=== PATIENT | female | born 1985 | race Caucasian/White ===

== ENCOUNTER 2017-07-03 17:42 | Observation (INO) | payer MEDICARE, SELFPAY ==
[2017-07-03 18:11] LABS: Bilirubin Negative (Negative); Blood, Urine Trace (Negative); Glucose, Urine (Dipstick) Negative (Negative); Ketone, Urine Negative (Negative); Nitrite Negative (Negative); Protein, Urine (Dipstick) 30 mg/dL (Neg-Trace); Urobilinogen 0.2 mg/dL (0.2-1.0)
[2017-07-03 18:17] LABS: Bacteria/HPF 4+ HPF (None Seen); Hyaline Casts/LPF 0-3 HYALINE CAST LPF (0-3 Hyaline); Squamous Epithelial None Seen HPF (0-3)
[2017-07-03 18:20] LABS: Amphetamine Detected (NotDetected); Methadone Not Detected (NotDetected); Methamphetamine Not Detected (NotDetected)
--- NOTE | 2017-07-03 18:24 | CT ---
CT OF BRAIN PERFORMED WITHOUT CONTRAST ENHANCEMENT: 07/03/17 HISTORY: Seizure-like activity. The ventricular and cisternal system is within normal limits. There are no signs of intracerebral he morrhage or extra-axial fluid collections. Mastoid air cells and visualized sinuses are clear. IMPRESSION: No acute intracranial abnormalities. POS: [facility]
[2017-07-03 18:28] LABS: #Lymphocytes 1.5 thou/uL (1.20-3.40); #Monocytes 0.9 thou/uL (0.11-0.59); #Neutrophils 12.9 thou/uL (1.40-6.50); %Basophils 0.2 % (0.0-1.0); %Eosinophils 0.1 % (0.0-10.0); %Lymphocytes 9.6 % (21.0-51.0); %Monocytes 6.1 % (0.0-10.0); Hematocrit 43.5 % (36.0-47.0); Mean Platelet Volume 7.9 fL (7.4-10.4); Red Blood Cell (RBC) Count 4.64 mill/uL (4.20-5.40); White Blood Cell (WBC) Count 15.3 thou/uL (4.8-10.8)
--- NOTE | 2017-07-03 18:47 | RAD ---
PORTABLE CHEST: 07/03/17 HISTORY: Altered mental status. Seizure activity. Heart size and mediastinum are within normal limits. The lungs are clear of infiltrates. No signs of any evidence for aspiration. IMPRESSION: No active intrathoracic disease. POS: [facility]
[2017-07-03 18:53] LABS: ALT (SGPT) 13 U/L (8-55); AST (SGOT) 28 U/L (5-34); Acetaminophen Less than 6.0 mcg/mL (10.0-30.0); Alkaline Phosphatase 70 U/L (40-150); Anion Gap 13 mmol/L (10-20); BUN (Urea Nitrogen) 18 mg/dL (7.0-18.7); Bilirubin, Total 0.7 mg/dL (0.2-1.2); CK (CPK) 1435 U/L (29-168); Calc. Creatinine Clearance 0 mL/min (70-130); Calcium 9.1 mg/dL (7.8-10.44); Carbon Dioxide 25 mmol/L (22-29); Chloride 106 mmol/L (98-107); Estimated GFR-MDRD 76; Globulin 3.6 g/dL (2.4-3.5); Lipase 5 U/L (8-78); Protein, Total 8.3 g/dL (6.0-8.3); Salicylate Less than 8.0 mg/dL (15.0-30.0)
[2017-07-03] MEDS ORDERED: Lorazepam 2 MG/ML VIAL ONE (19:11)
[2017-07-03] MEDS ORDERED: Haloperidol Lactate 5 MG/ML VIAL ONE (19:11)
[2017-07-03] MEDS ORDERED: Potassium Chloride 20 MEQ TAB ONE (23:53)
[2017-07-03] MEDS ORDERED: cefTRIAXone\\ROCEPHIN 1 GM VIAL ONE (23:53)
[2017-07-04] MEDS ORDERED: Ondansetron HCl/PF 4 MG/2 ML Vial IVP PRN (04:30)
[2017-07-04 05:03] VITALS: BMI 23.7
[2017-07-04 05:31] LABS: #Lymphocytes 2.2 thou/uL (1.20-3.40); #Monocytes 0.6 thou/uL (0.11-0.59); %Basophils 0.3 % (0.0-1.0); %Eosinophils 0.6 % (0.0-10.0); %Monocytes 7.6 % (0.0-10.0); Hematocrit 30.4 % (36.0-47.0); Mean Platelet Volume 8.3 fL (7.4-10.4); Red Blood Cell (RBC) Count 3.17 mill/uL (4.20-5.40); White Blood Cell (WBC) Count 7.8 thou/uL (4.8-10.8)
[2017-07-04 05:46] LABS: Anion Gap 9 mmol/L (10-20); BUN (Urea Nitrogen) 13 mg/dL (7.0-18.7); CK (CPK) 1428 U/L (29-168); Calc. Creatinine Clearance 125 mL/min (70-130); Carbon Dioxide 23 mmol/L (22-29); Chloride 113 mmol/L (98-107); Estimated GFR-MDRD Greater than 90
[2017-07-04] MEDS: Sodium Chloride 0.9% 1,000 ML IV SCH ×4 (05:58→20:29)
--- NOTE | 2017-07-04 07:22 | HP ---
DATE OF ADMISSION: 07/04/2017 TIME OF VISIT: 0500 hours. CHIEF COMPLAINT: Altered mental status. HISTORY OF PRESENT ILLNESS: Ms. Wilkinson is a 32-year-old white female with history of bipolar, anxie ty, depression, and seizure disorder who was apparently brought in by EMS after being found yelling and very agitated and shaking. EMS was activated, on arrival, she was combative and was given 350 m g of ketamine to achieve adequate sedation, was brought to the emergency department for evaluation. On evaluation, her labs were fairly normal. Potassium was low at 3.2. White blood cell count was elevated at 15.3. CK was 1400. She received 2 liters of IV fluids and repeat CK was elevated at 16 00. She received another 2 liters of IV fluid with a CK improving back down to 1400. [facility] was cons ulted, however, not evaluate the patient until her CK was apparently less than 800, so she was subse quently sent to our service for further stabilization. The patient is up on the floor, she is unable to tell me where she is other than being in the hospit al. She is not sure why she is here or what happened. Cannot give me any further history, the enti re history was taken from the ER chart. PAST MEDICAL HISTORY: 1. Epilepsy. 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 3. Anxiety with bipolar. 4. Depression. PAST SURGICAL HISTORY: Includes, 1. Ear reconstruction and surgery. 2. Tonsillectomy. HOME MEDICATIONS: Topiramate, Keppra, and Paxil, doses not quite clear. ALLERGIES: NKDA. FAMILY HISTORY: Unknown. SOCIAL HISTORY: She is positive for methamphetamines today, unsure if she uses alcohol or tobacco. Her alcohol level today was zero. REVIEW OF SYSTEMS: Unobtainable due to patient's mental status. PHYSICAL EXAMINATION: VITAL SIGNS: Temperature 97.8, pulse 96, blood pressure 111/52, respiratory rate 18, satting 100% o n room air. GENERAL: She is trying to sleep, but is awake. She is responsive and follows commands. She is con fused to location and time. HEENT: Normocephalic, atraumatic. Pupils equal, reactive bilaterally, mucous membranes are moist. There are no visible lesions. LUNGS: Clear to auscultation bilaterally. There are no wheezes, rales or rhonchi. CARDIOVASCULAR: Regular rhythm and a normal rate. Normal S1, S2. No audible murmurs. ABDOMEN: Soft, nontender, nondistended, no masses or organomegaly. EXTREMITIES: Show no cyanosis, no clubbing, and no edema. SKIN: Appears to be warm, moist, and well perfused. I do not see any rashes, lesions or track deanne s. MUSCULOSKELETAL: Normal to inspection without any joint inflammation or palpable joint effusions. NEUROLOGIC: Not testable as the patient is not cooperating. She is moving all 4 of her extremities , has conjugate gaze and speaks in very short 1 to 2 word phrases and therefore, I cannot assess her speech pattern. LABORATORY EVALUATION: CMP is normal except for potassium of 3.2. CBC showed a white count of 15.3 with a normal differential, hemoglobin 14.4, hematocrit of 43.5 and platelets 315,000. Urinalysis showed large leukocyte esterase, greater than 50 white blood cells, 4+ urine bacteria and negative p regnancy screen. Troponin I was negative at 0.010, CK-MB normal at 4.2 and TSH 1.47. Urine drug sc reen was positive for amphetamines, otherwise normal. RADIOGRAPHIC STUDIES: Chest x-ray is negative for acute cardiopulmonary disease. ASSESSMENT AND PLAN: 1. Methamphetamine abuse. 2. Mild rhabdomyolysis: CK is 1435 now down to 1453 after peaking at 1660. Unsure if she was havi ng seizure activity or musculoskeletal agitation. At this point, we will continue to hydrate her an d recheck her CK q.4 hours. Once below 800, we can get [facility] involved. 3. Urinary tract infection: We will start her on Cipro. 4. History of seizure disorder. No witnessed seizures. We will continue her Keppra and topiramate . 5. Anxiety/bipolar/depression on Paxil and topiramate, we will continue.
[2017-07-04] MEDS: Famotidine/PF 20 mg/2ml Vial SLOW IVP SCH ×2 (08:10→20:25)
--- NOTE | 2017-07-04 10:12 | PDOC.EVN ---
Event Note - Event Note Event Note: Not very talkative.. + suicidal edeations. VS stable, afebrile. PE unremarkable. Awaiting psych transfer, when cpk<1000 (per psych).
[2017-07-04] MEDS ORDERED: levETIRAcetam 500 MG TAB PO SCH (11:30)
--- NOTE | 2017-07-04 17:59 | DIS ---
DATE OF ADMISSION: 07/04/2017 DATE OF DISCHARGE: 07/04/2017 ADMITTING DIAGNOSES: Drug abuse, mild rhabdomyolysis, urinary tract infection. DISCHARGE DIAGNOSES: Drug abuse, mild rhabdomyolysis, urinary tract infection. APPLICATION DEFENSE MANAGER: None. PROCEDURE: Head CT, chest x-ray. HOSPITAL COURSE: The patient has been medically stable; however, her CPK was noticed to be elevated greater than 1000 and she is to be transferred to Psychiatry. However, psychiatrist wants the CPK to be less than 1000 to accept the patient. The patient is being currently hydrated to be transferr ed to Psychiatry later. Her vital signs are stable. Physical examination is unremarkable.
[2017-07-04] MEDS: levETIRAcetam 500 MG TAB PO SCH (20:25)
[2017-07-05] MEDS: Sodium Chloride 0.9% 1,000 ML IV SCH ×4 (00:03→18:14)
--- NOTE | 2017-07-05 07:57 | PDOC.PN ---
- Subjective Encounter Start Date: 07/05/17 Encounter Start Time: 08:00 Subjective: TIRED, UNSURE WHY SHE IS HERE IN HOSPITAL - Objective Resuscitation Status: Resuscitation Status FULL:Full Resuscitation MAR Reviewed: Yes Vital Signs & Weight: Vital Signs (12 hours) Temp Pulse Resp BP BP BP Pulse Ox 07/05/17 07:29 98.2 F 64 14 104/64 97 07/05/17 04:45 70 100/54 L 07/05/17 04:00 96.5 F L 85 16 85/50 L 95 07/04/17 23:35 98.7 F 80 20 102/66 98 07/04/17 20:05 96.9 F L 77 16 103/58 L 97 Weight Weight 145 lb 11.2 oz I&O: 07/04/17 07/05/17 07/06/17 06:59 06:59 06:59 Intake Total 200 4892 Balance 200 4892 Result Diagrams: 07/04/17 04:51 07/04/17 04:51 Phys Exam - Physical Examination Constitutional: NAD HEENT: PERRLA, moist MMs, sclera anicteric Neck: supple, full ROM Respiratory: no wheezing, no rhonchi, clear to auscultation bilateral Cardiovascular: RRR, no significant murmur Gastrointestinal: soft, non-tender, positive bowel sounds Musculoskeletal: no edema, pulses present Neurological: non-focal, normal sensation, moves all 4 limbs Psychiatric: normal affect, A&O x 3 Skin: no rash Dx/Plan (1) Methamphetamine abuse Code(s): F15.10 - OTHER STIMULANT ABUSE, UNCOMPLICATED Status: Acute (2) Bipolar 1 disorder Code(s): F31.9 - BIPOLAR DISORDER, UNSPECIFIED Status: Chronic (3) Rhabdomyolysis Code(s): M62.82 - RHABDOMYOLYSIS Status: Acute (4) UTI (urinary tract infection) Status: Acute - Plan cont current plan of care, continue antibiotics CK 772, [facility] EVAL TODAY -: ELECTROLYTES WNL, CONTINUE CIPRO ONCE D/C * .
[2017-07-05] MEDS ORDERED: Cipro 250 MG TAB PO SCH ×3 (08:00→20:00)
[2017-07-05] MEDS ORDERED: FLU VACC QS2017-18 36 mo. & older 0.5 ML SYRINGE IM ONE (09:00)
[2017-07-05] MEDS: levETIRAcetam 500 MG TAB PO SCH (09:44)
[2017-07-05] MEDS: Famotidine/PF 20 mg/2ml Vial SLOW IVP SCH (09:44)
[2017-07-05] MEDS ORDERED: Lorazepam 2 MG/ML VIAL SLOW IVP PRN (10:50)
--- NOTE | 2017-07-05 12:55 | DIS ---
DATE OF ADMISSION: 07/04/2017 DATE OF DISCHARGE: 07/05/2017 CHIEF COMPLAINT: Altered mental status, drug abuse. HOSPITAL COURSE: The patient was admitted secondary to altered mental status. She was also found t o be in rhabdomyolysis. U-tox positive for methamphetamine. The patient was seen and assessed by Andrez HIGGINBOTHAM and it was felt that the patient would benefit from inpatient psychiatric therapy. The patient' s CK was down to 772 and she was deemed safe for discharge for inpatient psych. The patient was not ed to have a urinalysis consistent with a possible urinary tract infection. She will be treated wit h a total of 3 days of ciprofloxacin. CONSULTANTS: [facility]. PROCEDURES: None. PHYSICAL EXAMINATION: GENERAL: She is anxious and agitated. HEENT: Normocephalic, atraumatic. EYES: PERRL. Extraocular muscles intact. HEART EXAM: Regular rate and rhythm. LUNGS: Clear to auscultation. ABDOMEN: Nontender, nondistended. EXTREMITIES: No clubbing, cyanosis or edema. DISPOSITION: To inpatient psychiatric hospital. DISCHARGE ACTIVITY: As tolerated. DISCHARGE DIET: Regular. DISCHARGE MEDICATIONS: The patient will be discharged on Keppra at a dose of 500 mg b.i.d. and she will also receive Cipro 250 mg p.o. b.i.d.
[2017-07-05 15:20] VITALS: BP 111/67; TEMP 98.5
== END 2017-07-05 18:09 | disposition short-term general hospital (02) ==
LOC: ERS 17:42 → EDBD 17:42 → 2SE 07-04 04:25
PROVIDERS: ADMIT Internal Medicine Infectious Disease; ATTEND Internal Medicine Infectious Disease
DX: F15.10 Other stimulant abuse, uncomplicated (principal); R41.82 Altered mental status, unspecified; M62.82 Rhabdomyolysis; N39.0 Urinary tract infection, site not specified; G40.909 Epilepsy, unspecified, not intractable, without status epilepticus; F31.9 Bipolar disorder, unspecified; F41.9 Anxiety disorder, unspecified; F17.200 Nicotine dependence, unspecified, uncomplicated; Z90.89 Acquired absence of other organs; Z98.890 Other specified postprocedural states
CPT/HCPCS: 51701; 70450; 71010; 80048; 80306; 80307; 81025; 82550 ×4; 82553; 83690; 84484; 85025; 93005; 96361 ×3; 96365; 96372; 96375 ×2; 96376 ×2; 99285; G0008; G0378; Q2036; 36415; 80053; 81003; 81015; 84443; 90471; 90682; A4216; J0696; J1630; J2060; S0028

== ENCOUNTER 2017-12-16 22:05 | Emergency (ER) | payer MEDICARE ==
[2017-12-16] MEDS ORDERED: Ondansetron HCl/PF 4 MG/2 ML Vial ONE (22:19)
[2017-12-16 22:53] LABS: #Basophils 0.1 thou/uL (0.0-0.2); #Eosinphils 0.2 thou/uL (0.0-0.7); #Lymphocytes 2.2 thou/uL (1.20-3.40); #Monocytes 0.8 thou/uL (0.11-0.59); #Neutrophils 4.6 thou/uL (1.40-6.50); %Basophils 0.9 % (0.0-1.0); %Eosinophils 2.9 % (0.0-10.0); %Lymphocytes 28.2 % (21.0-51.0); %Monocytes 9.5 % (0.0-10.0); %Neutrophils 58.5 % (42.0-75.0); Mean Corpuscular HGB CONC 33.9 g/dL (32.0-36.0); Mean Corpuscular Hemoglobin 31.4 pg (27.0-31.0); Mean Corpuscular Volume 92.5 fl (81.0-99.0); Mean Platelet Volume 8.9 fL (7.4-10.4); Platelet Count 226 thou/uL (130-400); RBC Distribution Width 11.7 % (11.5-14.5); Red Blood Cell (RBC) Count 4.14 mill/uL (4.20-5.40); White Blood Cell (WBC) Count 7.9 thou/uL (4.8-10.8)
[2017-12-16 23:10] LABS: ALT (SGPT) 8 U/L (8-55); AST (SGOT) 12 U/L (5-34); Albumin 4.1 g/dL (3.5-5.0); Alkaline Phosphatase 52 U/L (40-150); Anion Gap 14 mmol/L (10-20); BUN (Urea Nitrogen) 14 mg/dL (7.0-18.7); Bilirubin, Total 0.2 mg/dL (0.2-1.2); Calc. Creatinine Clearance 0 mL/min (70-130); Calcium 8.9 mg/dL (7.8-10.44); Carbon Dioxide 21 mmol/L (22-29); Chloride 108 mmol/L (98-107); Estimated GFR-MDRD 86; Globulin 2.7 g/dL (2.4-3.5); Glucose 111 mg/dL (70-105); Potassium 3.6 mmol/L (3.5-5.1); Protein, Total 6.8 g/dL (6.0-8.3); Sodium 139 mmol/L (136-145)
[2017-12-16] MEDS ORDERED: Acetaminophen 500 MG TAB ONE (23:13)
== END 2017-12-17 00:33 | disposition left against medical advice (07) ==
LOC: ERS 22:05
DX: Z03.89 Encounter for observation for other suspected diseases and conditions ruled out (principal); F31.9 Bipolar disorder, unspecified; F41.9 Anxiety disorder, unspecified; Z85.22 Personal history of malignant neoplasm of nasal cavities, middle ear, and accessory sinuses; Z79.899 Other long term (current) drug therapy
CPT/HCPCS: 36415; 80053; 85025; 94760; 96374; J2405

== ENCOUNTER 2018-03-28 12:59 | Emergency (ER) | payer MEDICARE, MEDICAID ==
[2018-03-28 14:17] LABS: Lavender RECEIVED; Red RECEIVED
[2018-03-28 14:20] LABS: #Basophils 0.1 thou/uL (0.0-0.2); #Eosinphils 0.1 thou/uL (0.0-0.7); #Lymphocytes 1.9 thou/uL (1.20-3.40); #Monocytes 0.4 thou/uL (0.11-0.59); #Neutrophils 2.6 thou/uL (1.40-6.50); %Basophils 1.5 % (0.0-1.0); %Eosinophils 1.8 % (0.0-10.0); %Lymphocytes 37.2 % (21.0-51.0); %Monocytes 8.3 % (0.0-10.0); %Neutrophils 51.2 % (42.0-75.0); Hemoglobin 13.6 g/dL (12.0-16.0); Mean Corpuscular HGB CONC 35.1 g/dL (32.0-36.0); Mean Corpuscular Hemoglobin 31.5 pg (27.0-31.0); Mean Corpuscular Volume 89.8 fL (78.0-98.0); Platelet Count 209 thou/uL (130-400); RBC Distribution Width 11.5 % (11.5-14.5); Red Blood Cell (RBC) Count 4.31 mill/uL (4.20-5.40)
[2018-03-28] MEDS ORDERED: Ondansetron ODT 4 MG TAB ONE (14:28)
[2018-03-28 14:30] LABS: BHCG - Serum Negative (NEGATIVE); Pregs Control Background? CLEAR/WHITE (CLR/WHITE); Pregs Control Bar Appear? YES (CONTROL BAR)
[2018-03-28 14:50] LABS: Anion Gap 11 mmol/L (10-20); BUN (Urea Nitrogen) 12 mg/dL (7.0-18.7); CK (CPK) 84 U/L (29-168); Calc. Creatinine Clearance 0 mL/min (70-130); Calcium 8.7 mg/dL (7.8-10.44); Carbon Dioxide 23 mmol/L (22-29); Chloride 108 mmol/L (98-107); Estimated GFR-MDRD 87; Glucose 83 mg/dL (70-105); Magnesium 2.5 mg/dL (1.6-2.6); Potassium 3.8 mmol/L (3.5-5.1); Sodium 138 mmol/L (136-145)
[2018-03-28] MEDS ORDERED: Acetaminophen 500 MG TAB ONE (14:58)
--- NOTE | 2018-03-28 15:16 | CT ---
HEAD CT WITHOUT CONTRAST: DATE: 03/28/18. COMPARISON: . HISTORY: Seizures. TECHNIQUE: Serial axial CT Imaging at 4 mm intervals from the vertex through the skull base without contrast. FINDINGS: The imaged paranasal sinuses and mastoid air cells are stable. The patient is status post mastoidect nemesio on the right. There is no displaced calvarial fracture. There is no intracranial hemorrhage, midline shift, mass effect, or ventricular enlargement. IMPRESSION: No intracranial hemorrhage. Recommend followup brain MRI given history of seizures. POS: [facility]
== END 2018-03-28 16:46 | disposition home or self-care (01) ==
LOC: ERS 12:59
DX: G40.909 Epilepsy, unspecified, not intractable, without status epilepticus (principal); F31.9 Bipolar disorder, unspecified; F41.9 Anxiety disorder, unspecified
CPT/HCPCS: 36415; 70450; 80048; 82550; 83735; 84703; 85025; 93005; 96360; Q0162

== ENCOUNTER 2018-04-24 16:15 | Emergency (ER) | payer MEDICARE, MEDICAID ==
[2018-04-24 18:10] LABS: #Basophils 0.1 thou/uL (0.0-0.2); #Eosinphils 0.1 thou/uL (0.0-0.7); #Lymphocytes 2.2 thou/uL (1.20-3.40); #Monocytes 0.5 thou/uL (0.11-0.59); #Neutrophils 2.8 thou/uL (1.40-6.50); %Basophils 1.2 % (0.0-1.0); %Eosinophils 1.9 % (0.0-10.0); %Lymphocytes 39.3 % (21.0-51.0); %Neutrophils 49.6 % (42.0-75.0); Hemoglobin 13.3 g/dL (12.0-16.0); Mean Corpuscular HGB CONC 34.7 g/dL (32.0-36.0); Mean Corpuscular Hemoglobin 31.5 pg (27.0-31.0); Mean Corpuscular Volume 90.7 fL (78.0-98.0); Mean Platelet Volume 9.1 fL (7.4-10.4); Platelet Count 208 thou/uL (130-400); Red Blood Cell (RBC) Count 4.24 mill/uL (4.20-5.40); White Blood Cell (WBC) Count 5.6 thou/uL (4.8-10.8)
[2018-04-24] MEDS ORDERED: levETIRAcetam 500 MG TAB PO SCH (18:15)
[2018-04-24 18:18] LABS: Pregnancy Test - Urine (BHCG) Negative (Negative); Pregu Control Background? CLEAR/WHITE (CLR/WHITE); Pregu Control Bar Appear? YES (CONTROL BAR)
[2018-04-24 18:19] LABS: Anion Gap 12 mmol/L (10-20); BUN (Urea Nitrogen) 10 mg/dL (7.0-18.7); Calc. Creatinine Clearance 0 mL/min (70-130); Calcium 8.5 mg/dL (7.8-10.44); Carbon Dioxide 23 mmol/L (22-29); Chloride 109 mmol/L (98-107); Estimated GFR-MDRD Greater than 90; Glucose 98 mg/dL (70-105); Potassium 3.8 mmol/L (3.5-5.1); Sodium 140 mmol/L (136-145)
[2018-04-24 18:21] LABS: Acetaminophen Less than 6.0 mcg/mL (10.0-30.0); Alcohol Less than 10 mg/dL (Less than 10); Salicylate Less than 8.0 mg/dL (15.0-30.0)
--- NOTE | 2018-04-24 18:28 | CT ---
HEAD CT WITHOUT CONTRAST: Comparison: 03-28-18 History: Seizure. Technique: Serial axial CT imaging at 5 mm interval from vertex through the skull base without contra st. FINDINGS: The imaged paranasal sinuses and mastoid air cells appear grossly unremarkable. There is no displaced calvarial fracture. No intracranial hemorrhage, midline shift, mass effect, or ventricular enlargeme nt. IMPRESSION: Stable head CT. No acute findings. POS: [facility]
[2018-04-24 18:30] LABS: Amphetamine Not Detected (NotDetected); Barbiturates Screen Not Detected (NotDetected); Benzodiazepine Screen Not Detected (NotDetected); Cocaine Metabolite Screen Not Detected (NotDetected); Medtox Control Line Valid? VALID (VALID); Medtox Reader # READER 1; Methadone Not Detected (NotDetected); Methamphetamine Not Detected (NotDetected); Opiate Screen Not Detected (NotDetected); Oxycodone Screen Not Detected (NotDetected); Phencyclidine (PCP) Not Detected (NotDetected); THC/Cannabinoid Screen Not Detected (NotDetected); Tricyclic Screen Not Detected (NotDetected)
== END 2018-04-24 18:56 | disposition home or self-care (01) ==
LOC: ERS 16:15
DX: G40.909 Epilepsy, unspecified, not intractable, without status epilepticus (principal); Z71.6 Tobacco abuse counseling; F41.9 Anxiety disorder, unspecified; F31.9 Bipolar disorder, unspecified
CPT/HCPCS: 70450; 80048; 80306; 80307; 81025; 85025; 93005; 99406

== ENCOUNTER 2019-01-08 20:54 | Emergency (ER) | payer MEDICARE, MEDICAID ==
[2019-01-08] MEDS ORDERED: Acetaminophen 500 MG TAB ONE (21:31)
[2019-01-08] MEDS ORDERED: Bacitracin Zinc 1 Packet ONE (21:53)
--- NOTE | 2019-01-08 21:56 | RAD ---
RIGHT LEG TWO VIEWS: History: Right leg pain. Right leg laceration. FINDINGS/IMPRESSION: The visualized portions of the right tibia and fibula are intact. The inferior aspect of the medial a nd lateral malleolus have been excluded from the film. No radiopaque foreign body is seen. POS: [facility]
== END 2019-01-08 22:34 | disposition home or self-care (01) ==
LOC: ERS 20:54
DX: O9A.212 Injury, poisoning and certain other consequences of external causes complicating pregnancy, second trimester (principal); S71.151A Open bite, right thigh, initial encounter; S81.851A Open bite, right lower leg, initial encounter; O99.342 Other mental disorders complicating pregnancy, second trimester; F41.9 Anxiety disorder, unspecified; F31.9 Bipolar disorder, unspecified; W54.0XXA Bitten by dog, initial encounter